=== PATIENT | female | born 1980 | race Caucasian/White ===

== ENCOUNTER 2018-11-04 19:54 | Emergency (ER) | payer OTHER ==
[2018-11-04 20:43] VITALS: BP 127/99
[2018-11-04] MEDS ORDERED: Albuterol HFA INHALER* 8 gm MDI INH ONE (21:26)
[2018-11-04] MEDS ORDERED: HYDROcodone/ACETAMIN 5-325 MG* 1 TAB PO ONE (21:28)
[2018-11-04] MEDS ORDERED: Ibuprofen TAB* 600 MG PO ONE (21:28)
[2018-11-04] MEDS ORDERED: Azithromycin TAB* 250 MG PO ONE (21:28)
--- NOTE | 2018-11-04 22:07 | UC ---
General HPI - HPI Summary HPI Summary: pt presents to the ED for evaluation of her left ear pain and congestion. her and her have driven up from [place]. pt's mother in law unexpectedly on . they came for the . pt denies any trauma to her left ear. she took excedrin without relief. - History of Current Complaint Chief Complaint: UCEar Stated Complaint: HEADACHE/EARS Hx Obtained From: Patient, Family/Occupational Health Manager Hx Last Menstrual Period: 2003 Onset/Duration: Gradual Onset Onset Severity: Moderate Current Severity: Moderate Pain Intensity: 10 Associated Signs & Symptoms: Positive: Cough, Headache, Wheezing. Negative: Chest Pain, Dizziness, Diarrhea, Dysuria, Edema, Fever, Nausea, SOB, Vomiting, Weakness - Allergy/Home Medications Allergies/Adverse Reactions: Allergies Allergy/AdvReac Type Severity Reaction Status Date / Time Sulfa (Sulfonamide Allergy Hives Verified 11/04/18 20:38 Antibiotics) Home Medications: Home Medications [id number] Es (Nf) [Excedrin Extra Strength 250-250-65 mg (NF)] 2 each PO ONCE 11/04/18 [History Confirmed 11/04/18] PMH/Surg Hx/FS Hx/Imm Hx Previously Healthy: Yes - Surgical History Surgical History: None - Social History Alcohol Use: None Substance Use Type: None Smoking Status (MU): Heavy Every Day Tobacco Smoker Review of Systems All Other Systems Reviewed And Are Negative: No Constitutional: Positive: Negative Skin: Negative: Rash Eyes: Negative: Eye Redness ENT: Positive: Ear Ache, Sinus Congestion. Negative: Dental Pain, Sore Throat, Nasal Discharge Respiratory: Positive: Cough. Negative: Shortness Of Breath Cardiovascular: Negative: Palpitations, Chest Pain Gastrointestinal: Negative: Abdominal Pain, Vomiting, Diarrhea, Nausea Genitourinary: Negative: Dysuria, Hematuria, Frequency Motor: Negative: Weakness Neurovascular: Positive: Negative Musculoskeletal: Positive: Negative Neurological: Positive: Headache Psychological: Positive: Negative Is Patient Immunocompromised?: No Physical Exam Triage Information Reviewed: Yes Appearance: Well-Nourished, Pain Distress - very mild. pt has a warm pack over her left ear. Vital Signs: Initial Vital Signs Temp 97.9 F 11/04/18 20:37 Pulse 80 11/04/18 20:37 Resp 26 11/04/18 20:37 BP 127/99 11/04/18 20:37 Pulse Ox 100 11/04/18 20:37 Eye Exam: Normal Eyes: Positive: Conjunctiva Clear ENT: Positive: TM bulging - right, TM dull - right, TM red - right Neck exam: Normal Respiratory: Positive: Chest non-tender, No respiratory distress, No accessory muscle use, Wheezing - occasional Cardiovascular: Positive: RRR, No Murmur Abdomen Description: Positive: Nontender, Soft Bowel Sounds: Positive: Present Musculoskeletal Exam: Normal Neurological: Positive: Alert Psychological Exam: Normal Skin Exam: Normal Course/Dx - Course Course Of Treatment: pt has an om and bronchitis. she is a smoker. she is not near home. will rx zpak, albuterol inhaler, spacer, and she was given 2 vicodin for tonight so she can sleep. pt encouraged to return if worse or any new symptoms. was present for instructions. - Diagnoses Provider Diagnosis: Otitis media, Bronchitis Discharge - Sign-Out/Discharge Documenting (check all that apply): Patient Departure All imaging exams completed and their final reports reviewed: No Studies - Discharge Plan Condition: Stable Disposition: HOME Prescriptions: Azithromyxin ANITA (NF) [Z-Anita (Zithromax) 250 mg tabs #6] 2 tab PO .TODAY, THEN 1 DAILY #6 tab Patient Education Materials: Ear Infection (ED), Acute Bronchitis (ED) Referrals: No Primary Care Phys,NOPCP [Primary Care Provider] - [facility] [Provider Group] Additional Instructions: Take the antibiotic as instructed. take tylenol and motrin for pain or discomfort. return if worse or any new symptoms. it is important to follow up with a doctor. since you are from out of town, I have given you a referral to a pcp in the area. otherwise, please return to the for further evaluation. - Billing Disposition and Condition Condition: STABLE Disposition: Home
== END 2018-11-04 22:16 | disposition home or self-care (01) ==
LOC: UCCORT 19:54
DX: H66.91 Otitis media, unspecified, right ear (principal); J40 Bronchitis, not specified as acute or chronic; Z88.2 Allergy status to sulfonamides; F17.210 Nicotine dependence, cigarettes, uncomplicated
CPT/HCPCS: 99203; A9270-GY; G0463